=== PATIENT | female | born 1965 | race African-American/Black ===

== ENCOUNTER → 2017-08-27 | Outpatient (CLI) | payer BC | END | disposition home or self-care (01) | LOC: US 07:31 | DX: K83.8 Other specified diseases of biliary tract (principal) | CPT/HCPCS: 76700 ==

== ENCOUNTER → 2018-02-09 | Day surgery (SDC) | payer BC ==
[2018-02-09] MEDS: LIDOCAINE 1%/EPI 1:100,000 20 ML VIAL. INJ ×2 (11:45→12:02)
== END | disposition home or self-care (01) ==
LOC: SURG 10:29
DX: L08.89 Other specified local infections of the skin and subcutaneous tissue (principal); I10 Essential (primary) hypertension; K21.9 Gastro-esophageal reflux disease without esophagitis; E66.01 Morbid (severe) obesity due to excess calories; Z68.36 Body mass index [BMI] 36.0-36.9, adult; G89.29 Other chronic pain; Z96.653 Presence of artificial knee joint, bilateral; Z90.710 Acquired absence of both cervix and uterus; Z98.84 Bariatric surgery status; Z98.890 Other specified postprocedural states; Z83.3 Family history of diabetes mellitus; Z90.79 Acquired absence of other genital organ(s); Z90.721 Acquired absence of ovaries, unilateral; M19.90 Unspecified osteoarthritis, unspecified site; Z79.899 Other long term (current) drug therapy
CPT/HCPCS: 11423; 88304; J3490